=== PATIENT | male | born 1970 | race Caucasian/White ===

== ENCOUNTER 2016-11-07 18:07 | Emergency (ER) | payer OTHER ==
--- NOTE | 2016-11-17 18:05 | ER ---
ADMIT: 11/07/2016 RM/LOC: ER [facility] MR#: [id number] [address] [id number] LORE RUBIO Presley [address] [place] [address] Emergency Room Report SEX: M AGE: 46 : 1970 DATE: 11/07/2016 See T-sheet for complete H and P. ADDENDUM: A 46-year-old male, comes in with pain in his left 4th toe after he accidentally kicked a door this morning. He states the toe was not pointing the right direction. He has had continued pain in that toe since onset, so he wanted to come and get it checked out. He was given a shot of Toradol here and x-ray is currently pending. The results of the x-ray will be relayed to the patient and he is to follow up with the [facility]. Luca Hyman MD/ joey JOB #: [id number] CC: Luca Hyman MD, Attending Physician [facility] [facility], Family Physician
== END 2016-11-07 19:20 | disposition home or self-care (01) ==
LOC: ER 18:07
DX: S92.512A Displaced fracture of proximal phalanx of left lesser toe(s), initial encounter for closed fracture (principal); F25.9 Schizoaffective disorder, unspecified; E78.00 Pure hypercholesterolemia, unspecified; F17.210 Nicotine dependence, cigarettes, uncomplicated; W22.8XXA Striking against or struck by other objects, initial encounter; Y92.009 Unspecified place in unspecified non-institutional (private) residence as the place of occurrence of the external cause